=== PATIENT | male | born 1995 | race Two or more races ===

== ENCOUNTER 2016-07-16 21:43 | Emergency (ER) | payer OTHER ==
[~2016-07-16] VITALS: Ht 175.3 cm; Wt 77.1 kg
[2016-07-16 22:29] VITALS: BP 131/78
[2016-07-16] MEDS ORDERED: IBUPROFEN 800 MG TAB PO ONE (23:00)
== END 2016-07-17 00:29 | disposition home or self-care (01) ==
LOC: ER 21:45
DX: S66.211A Strain of extensor muscle, fascia and tendon of right thumb at wrist and hand level, initial encounter (principal); S09.11XA Strain of muscle and tendon of head, initial encounter; F17.210 Nicotine dependence, cigarettes, uncomplicated; Z90.49 Acquired absence of other specified parts of digestive tract; X58.XXXA Exposure to other specified factors, initial encounter; Y93.89 Activity, other specified; Y92.89 Other specified places as the place of occurrence of the external cause; Y99.8 Other external cause status
CPT/HCPCS: 73120

== ENCOUNTER 2016-11-24 12:40 | Emergency (ER) | payer SELFPAY ==
[~2016-11-24] VITALS: Ht 175.3 cm; Wt 81.6 kg
[2016-11-24 13:15] VITALS: BP 130/76
[2016-11-24] MEDS ORDERED: KETOROLAC TROMETH 60MG/2ML VIAL IM ONE (14:00)
== END 2016-11-24 14:13 | disposition home or self-care (01) ==
LOC: ER 12:40
DX: S46.912A Strain of unspecified muscle, fascia and tendon at shoulder and upper arm level, left arm, initial encounter (principal); S83.91XA Sprain of unspecified site of right knee, initial encounter; R51 Headache; F17.210 Nicotine dependence, cigarettes, uncomplicated; V43.52XA Car driver injured in collision with other type car in traffic accident, initial encounter; Y93.89 Activity, other specified; Y99.8 Other external cause status; Y92.488 Other paved roadways as the place of occurrence of the external cause
CPT/HCPCS: 70450; 73030; 73562; 96372; 99284; J1885

== ENCOUNTER 2017-06-15 13:49 | Emergency (ER) | payer SELFPAY ==
[~2017-06-15] VITALS: Ht 175.3 cm; Wt 81.2 kg
[2017-06-15 14:23] VITALS: BP 123/74
== END 2017-06-15 15:39 | disposition home or self-care (01) ==
LOC: ER 14:01
DX: S63.697A Other sprain of left little finger, initial encounter (principal); F17.210 Nicotine dependence, cigarettes, uncomplicated; W22.8XXA Striking against or struck by other objects, initial encounter; Y93.89 Activity, other specified; Y99.8 Other external cause status; Y92.89 Other specified places as the place of occurrence of the external cause
CPT/HCPCS: 73130

== ENCOUNTER 2017-10-10 20:50 | Inpatient (IN) | payer MEDICAID, OTHER ==
[~2017-10-10] VITALS: Ht 177.8 cm; Wt 88.9 kg
[2017-10-10 22:04] LABS: Basophils # (auto) 0.1 uL; Basophils % (auto) 0.4 % (0.0-2.0); Eosinophils # (auto) 0.2 uL; Eosinophils % (auto) 1.5 % (0.0-7.0); Lymphocytes # (auto) 1.7 uL; Lymphocytes % (auto) 12.5 % (10.0-50.0); Mean Corpuscular Hemoglobin 32.2 pg (28.0-32.0); Mean Corpuscular Hgb Conc. 35.4 g/dL (32.0-36.0); Mean Corpuscular Volume 91.1 fL (80.0-100.0); Monocytes # (auto) 0.7 uL; Monocytes % (auto) 5.2 % (0.0-12.0); Neutrophils # (auto) 10.9 uL; Neutrophils % (auto) 80.4 % (37.0-80.0); Nucleated Red Blood Cells % 0.1 %; Platelet Count (auto) 183 10^3/uL (140-450); Red Blood Cells 5.27 10^6/uL (4.5-5.90); White Blood Cell 13.5 10^3/uL (4.4-10.8)
[2017-10-10 22:14] LABS: Albumin 4.4 g/dL (3.4-5.0); BUN/Creatinine Ratio 15.3; Potassium 4.1 mmol/L (3.5-5.1)
[2017-10-10 22:16] LABS: Bilirubin, Total 1.3 mg/dL (0.2-1.0); Total Protein 8.3 g/dL (6.4-8.2)
[2017-10-10 22:40] LABS: Urine Bacteria NONE SEEN /hpf (None Seen); Urine Blood Negative /uL (Negative); Urine Mucus FEW (None Seen); Urine Specific Gravity 1.029 (1.001-1.035); Urine WBC 1 /hpf (0 - 3)
[2017-10-10] MEDS ORDERED: SODIUM CHLORIDE 0.9% 1,000 ML IV ONE (23:30)
[2017-10-10] MEDS ORDERED: HYDROmorphone HCL 2 MG/ML VL IV ONE (23:30)
[2017-10-10] MEDS ORDERED: PROMETHAZINE HCL 25 MG/ML 1ML IV ONE (23:30)
[2017-10-11] VITALS (7 sets, daily range): BP systolic 116–132; BP diastolic 59–72
[2017-10-11 01:26] LABS: Alcohol, Urine < 3.0 mg/dL (0-5); Amphetamine Screen, Urine NEGATIVE (NEGATIVE); Barbiturate Scree,Urine NEGATIVE (NEGATIVE); Benzodiazephine Screen, Urine NEGATIVE (NEGATIVE); Cannabinoid Screen, Urine NEGATIVE (NEGATIVE); Cocaine Screen, Urine NEGATIVE (NEGATIVE); Opiate Scree,Urine NEGATIVE (NEGATIVE); Phencyclidine Screen, Urine NEGATIVE (NEGATIVE)
[2017-10-11] MEDS ORDERED: ONDANSETRON HCL 4 MG/2 ML VIAL ONE (01:51)
[2017-10-11] MEDS ORDERED: ONDANSETRON HCL 4 MG/2 ML VIAL IV ONE (02:00)
[2017-10-11] MEDS ORDERED: SODIUM CHLORIDE 0.9% 500 ML IV ONE (02:45)
[2017-10-11] MEDS ORDERED: PANTOPRAZOLE 40 MG/10 ML VIAL IV ONE (02:45)
[2017-10-11] MEDS ORDERED: TEMAZEPAM 15 MG CAP PO PRN (02:45)
[2017-10-11] MEDS ORDERED: SODIUM CHLORIDE 0.9% 1,000 ML IV SCH (02:45)
[2017-10-11] MEDS ORDERED: ONDANSETRON HCL 4 MG/2 ML VIAL IV PRN (02:45)
[2017-10-11] MEDS ORDERED: HYDROcodone-ACET 5/325MG TAB PO PRN (02:45)
[2017-10-11] MEDS ORDERED: ACETAMINOPHEN 325 MG TAB PO PRN (02:45)
[2017-10-11] MEDS: MORPHINE SULFATE 4 MG/ML SYR/VIAL IV PRN ×2 (04:10→19:19)
[2017-10-11] MEDS: cefTRIAXone 1GM/10ml IVPUSH 10 ML IV SCH (09:59)
[2017-10-11] MEDS: PANTOPRAZOLE 40 MG/10 ML VIAL IV SCH (09:59)
[2017-10-11] MEDS ORDERED: IBUPROFEN 400 MG TAB PO PRN (11:45)
[2017-10-11 12:23] LABS: INR 1.01 (0.9-1.15); Partial Thromboplastin Time 24.3 sec (23.78-33.04); Prothrombin Time 10.8 sec (9.27-12.13)
[2017-10-11] MEDS: THIAMINE INJ 100 MG, MULTIPLE VITAMIN 10 ML, FOLIC ACID 1 MG, MAGNESIUM SULF SDV 50% 8 ... IV SCH ×5 (14:15)
[2017-10-12 05:00] VITALS: BP 111/85
[2017-10-12 07:10] LABS: Basophils # (auto) 0 uL; Basophils % (auto) 0.4 % (0.0-2.0); Eosinophils # (auto) 0.2 uL; Eosinophils % (auto) 3.4 % (0.0-7.0); Hematocrit 44.3 % (41.0-53.0); Hemoglobin 15.4 g/dL (13.5-17.5); Lymphocytes # (auto) 2.3 uL; Lymphocytes % (auto) 31.9 % (10.0-50.0); Mean Corpuscular Hemoglobin 31.7 pg (28.0-32.0); Mean Corpuscular Hgb Conc. 34.8 g/dL (32.0-36.0); Mean Corpuscular Volume 91.1 fL (80.0-100.0); Monocytes # (auto) 0.5 uL; Monocytes % (auto) 7.5 % (0.0-12.0); Neutrophils # (auto) 4.1 uL; Neutrophils % (auto) 56.8 % (37.0-80.0); Nucleated Red Blood Cells % 0.1 %; Platelet Count (auto) 144 10^3/uL (140-450); Red Blood Cells 4.86 10^6/uL (4.5-5.90); Red Cell Distribution Width 12.7 % (11.8-14.3); White Blood Cell 7.2 10^3/uL (4.4-10.8)
[2017-10-12 07:16] LABS: Potassium 3.8 mmol/L (3.5-5.1)
[2017-10-12 07:21] LABS: Albumin 3.5 g/dL (3.4-5.0); BUN/Creatinine Ratio 11.8; Calcium 8.2 mg/dL (8.5-10.1)
[2017-10-12 07:23] LABS: Bilirubin, Total 0.7 mg/dL (0.2-1.0); Total Protein 6.9 g/dL (6.4-8.2)
[2017-10-12 09:00] VITALS: BP 107/67
[2017-10-12] MEDS: PANTOPRAZOLE 40 MG/10 ML VIAL IV SCH (09:47)
[2017-10-12] MEDS: cefTRIAXone 1GM/10ml IVPUSH 10 ML IV SCH (09:47)
[2017-10-12 10:16] LABS: Hepatitis B Surface Antibody Negative
[2017-10-12 10:54] LABS: Hepatitis A Total Antibody Positive
[2017-10-12 11:05] LABS: Hepatitis B Core Total AB Negative
[2017-10-12 11:06] LABS: Hepatitis B Surface Antigen Negative (Negative); Hepatitis C Antibody Negative (Negative)
[2017-10-12 13:06] VITALS: BP 110/64
[2017-10-12] MEDS: THIAMINE INJ 100 MG, MULTIPLE VITAMIN 10 ML, FOLIC ACID 1 MG, MAGNESIUM SULF SDV 50% 8 ... IV SCH ×5 (14:31)
[2017-10-12 17:00] VITALS: BP 112/60
[2017-10-12 22:00] VITALS: BP 124/68
[2017-10-13 05:00] VITALS: BP 118/61
[2017-10-13 07:20] LABS: Bilirubin, Total 0.4 mg/dL (0.2-1.0)
[2017-10-13 09:26] VITALS: BP 121/69
[2017-10-13 11:10] VITALS: BP 121/69
== END 2017-10-13 11:35 | disposition home or self-care (01) ==
LOC: ER 20:50 → OVERFLOW 20:51 → CENTRAL 10-11 03:24
PROVIDERS: ADMIT Nurse Practitioner; ATTEND Internal Medicine
DX: B17.9 Acute viral hepatitis, unspecified (principal); R65.10 Systemic inflammatory response syndrome (SIRS) of non-infectious origin without acute organ dysfunction; K76.0 Fatty (change of) liver, not elsewhere classified; R79.89 Other specified abnormal findings of blood chemistry; K52.9 Noninfective gastroenteritis and colitis, unspecified; F17.210 Nicotine dependence, cigarettes, uncomplicated; Z90.49 Acquired absence of other specified parts of digestive tract
CPT/HCPCS: 36415; 74176; 76705; 80053; 80307; 81001; 82150; 82247; 83690; 84450; 84460; 85025; 85610; 85730; 86664; 86704; 86706; 86708; 86803; 87040; 87340; 96361; 96374; 96375; C9113; J0696; J2405

== ENCOUNTER 2018-09-21 10:52 | Emergency (ER) | payer MEDICAID ==
[~2018-09-21] VITALS: Ht 175.3 cm; Wt 81.6 kg
[2018-09-21 11:29] VITALS: BP 127/75
== END 2018-09-21 12:50 | disposition home or self-care (01) ==
LOC: ER 10:52
DX: H00.012 Hordeolum externum right lower eyelid (principal); F17.210 Nicotine dependence, cigarettes, uncomplicated; Z90.49 Acquired absence of other specified parts of digestive tract

== ENCOUNTER 2020-07-29 10:58 | Emergency (ER) | payer MEDICAID ==
[~2020-07-29] VITALS: Ht 177.8 cm; Wt 81.6 kg
[2020-07-29 12:02] LABS: Urine Bacteria FEW /hpf (None Seen); Urine Blood Negative /uL (Negative); Urine Mucus FEW (None Seen); Urine Specific Gravity 1.017 (1.001-1.035); Urine WBC 1 /hpf (0 - 3)
[2020-07-29] MEDS ORDERED: KETOROLAC TROMETH 60MG/2ML VIAL IM ONE (13:15)
[2020-07-29 13:23] VITALS: BP 144/85
== END 2020-07-29 13:34 | disposition home or self-care (01) ==
LOC: ER 11:06
DX: S39.012A Strain of muscle, fascia and tendon of lower back, initial encounter (principal); F17.210 Nicotine dependence, cigarettes, uncomplicated; Z90.49 Acquired absence of other specified parts of digestive tract; X50.1XXA Overexertion from prolonged static or awkward postures, initial encounter; Y93.89 Activity, other specified; Y92.89 Other specified places as the place of occurrence of the external cause; Y99.8 Other external cause status
CPT/HCPCS: 72100; 81001; 96372; 99284; J1885

== ENCOUNTER 2020-09-23 17:15 | Emergency (ER) | payer MEDICAID ==
[~2020-09-23] VITALS: Ht 177.8 cm; Wt 81.6 kg
[2020-09-23 17:25] VITALS: BP 137/87
[2020-09-23] MEDS ORDERED: IBUPROFEN 800 MG TAB PO ONE (20:30)
[2020-09-23] MEDS ORDERED: LIDOCAINE 1% HCL (LOCAL ANESTH.) INJ 20ML MDV IJ ONE (20:30)
[2020-09-23] MEDS ORDERED: ACETAMINOPHEN 500 MG TAB PO ONE (20:30)
== END 2020-09-23 21:22 | disposition home or self-care (01) ==
LOC: ER 17:15
DX: S01.511A Laceration without foreign body of lip, initial encounter (principal); F17.210 Nicotine dependence, cigarettes, uncomplicated; Z90.49 Acquired absence of other specified parts of digestive tract; W22.8XXA Striking against or struck by other objects, initial encounter; Y93.89 Activity, other specified; Y92.89 Other specified places as the place of occurrence of the external cause; Y99.0 Civilian activity done for income or pay
CPT/HCPCS: 12011; 99283; J2001

== ENCOUNTER 2022-01-29 19:47 | Emergency (ER) | payer MEDICAID ==
[~2022-01-29] VITALS: Ht 175.3 cm; Wt 85.2 kg
[2022-01-29] MEDS ORDERED: HYDROcodone-ACET 5/325MG TAB PO ONE (20:30)
[2022-01-29] MEDS ORDERED: ETHYL CHLORIDE SPRAY TOP ONE (23:45)
[2022-01-30] MEDS ORDERED: IBUPROFEN 800 MG TAB PO ONE (00:30)
[2022-01-30] MEDS ORDERED: MIDAZOLAM HCL 2MG/2ML 2ml VIAL (1mg/ml) IM ONE (00:30)
[2022-01-30] MEDS ORDERED: IBUP800T26 PO (01:44)
[2022-01-30] MEDS ORDERED: METH500T22 PO (01:44)
[2022-01-30 03:06] VITALS: BP 116/65
== END 2022-01-30 03:23 | disposition home or self-care (01) ==
LOC: ER 19:47
DX: S39.012A Strain of muscle, fascia and tendon of lower back, initial encounter (principal); F17.210 Nicotine dependence, cigarettes, uncomplicated; Z90.49 Acquired absence of other specified parts of digestive tract; Z79.1 Long term (current) use of non-steroidal anti-inflammatories (NSAID); Z79.899 Other long term (current) drug therapy; X50.1XXA Overexertion from prolonged static or awkward postures, initial encounter; Y93.89 Activity, other specified; Y92.89 Other specified places as the place of occurrence of the external cause; Y99.8 Other external cause status
CPT/HCPCS: 72100; 96372; 99283; J2250

== ENCOUNTER 2023-04-27 10:10 | Emergency (ER) | payer MEDICAID ==
[~2023-04-27] VITALS: Ht 175.3 cm; Wt 88.3 kg
[~2023-04-27 10:10] MED LIST: IBUP-1455 PO; METH-1181 PO
[2023-04-27 10:57] LABS: Urine Bacteria NONE SEEN /hpf (None Seen); Urine Blood Negative /uL (Negative); Urine Clarity Clear (Clear); Urine Color Yellow (Yellow); Urine Mucus FEW (None Seen); Urine Protein, UAD TRACE (Negative); Urine Specific Gravity 1.034 (1.001-1.035); Urine Urobilinogen Normal (Negative); Urine WBC 1 /hpf (0 - 3); Urine pH 5.5 (5.0-8.0)
[2023-04-27 11:55] LABS: Alanine Aminotransferase 63 U/L (7-40); Albumin 4.9 g/dL (3.2-4.8); Alkaline Phosphatase 58 U/L (46-116); Anion Gap 9 (5-15); Aspartate Aminotransferase 30 U/L (13-40); BUN/Creatinine Ratio 17.2 (10.0-20.0); Blood Urea Nitrogen 17 mg/dL (9-23); Calcium 9.3 mg/dL (8.7-10.4); Carbon Dioxide 25 mmol/L (20-30); Chloride 106 mmol/L (98-107); Glucose 100 mg/dL (74-106); Lipase 37 U/L (12-53); Potassium 3.9 mmol/L (3.5-5.1); Sodium 140 mmol/L (136-145)
[2023-04-27 11:56] LABS: Bilirubin, Total 1.1 mg/dL (0.2-1.0); Total Protein 7.4 g/dL (5.7-8.2)
[2023-04-27 12:16] LABS: Basophils # (auto) 0.1 10 ^3/uL (0-0.2); Basophils % (auto) 0.8 % (0.0-2.0); Eosinophils # (auto) 0.3 10 ^3/uL (0-0.8); Eosinophils % (auto) 3.2 % (0.0-7.0); Hematocrit 50.3 % (41.0-53.0); Hemoglobin 17.3 g/dL (13.5-17.5); Lymphocytes # (auto) 2.6 10 ^3/uL (0.4-5.4); Lymphocytes % (auto) 31.3 % (10.0-50.0); Mean Corpuscular Hemoglobin 31.2 pg (28.0-32.0); Mean Corpuscular Hgb Conc. 34.3 g/dL (32.0-36.0); Mean Corpuscular Volume 91.1 fL (80.0-100.0); Monocytes # (auto) 0.4 10 ^3/uL (0-1.3); Monocytes % (auto) 5.4 % (0.0-12.0); Neutrophils # (auto) 4.9 10 ^3/uL (1.6-8.6); Neutrophils % (auto) 59.3 % (37.0-80.0); Nucleated Red Blood Cells % 0.3 %; Red Blood Cells 5.53 10^6/uL (4.5-5.90); Red Cell Distribution Width 12.7 % (11.8-14.3); White Blood Cell 8.3 10^3/uL (4.4-10.8)
[2023-04-27] MEDS: LIDOCAINE VISCOUS 2% 15ML UD PO ONE (12:25)
[2023-04-27] MEDS: MAALOX PLUS or MAALOX 30 ML PO ONE (12:25)
[2023-04-27] MEDS: SODIUM CHLORIDE 0.9% 1,000 ML IV ONE (12:28)
[2023-04-27] MEDS: KETOROLAC TROMETH 60MG/2ML VIAL IV ONE (12:39)
[2023-04-27] MEDS: ONDANSETRON HCL 4 MG/2 ML VIAL IV ONE (12:39)
[2023-04-27] MEDS: PANTOPRAZOLE 40 MG/10 ML VIAL INJ IV ONE (12:39)
[2023-04-27 13:43] VITALS: BP 120/77; PULSE 18; RESP 18; O2SAT 98
== END 2023-04-27 13:42 | disposition home or self-care (01) ==
LOC: ER 10:10
DX: R10.11 Right upper quadrant pain (principal); R11.2 Nausea with vomiting, unspecified; F17.210 Nicotine dependence, cigarettes, uncomplicated; Z90.49 Acquired absence of other specified parts of digestive tract; Z79.1 Long term (current) use of non-steroidal anti-inflammatories (NSAID); Z79.899 Other long term (current) drug therapy
CPT/HCPCS: 36415; 74176; 80053; 81001; 83605; 83690; 84484; 85025; 96361; 96374; 96375; 99285; C9113; J1885; J2405; J7030